=== PATIENT | male | born 1965 | race Caucasian/White ===

== ENCOUNTER → 2016-11-27 | Outpatient (CLI) | payer OTHER | LOC: M PAIN 10:40 | PROVIDERS: ATTEND Anesthesiology | DX: Z09 Encounter for follow-up examination after completed treatment for conditions other than malignant neoplasm (principal); G89.29 Other chronic pain; M51.16 Intervertebral disc disorders with radiculopathy, lumbar region; E11.9 Type 2 diabetes mellitus without complications; I25.2 Old myocardial infarction; E03.9 Hypothyroidism, unspecified; I25.10 Atherosclerotic heart disease of native coronary artery without angina pectoris; I10 Essential (primary) hypertension; M11.20 Other chondrocalcinosis, unspecified site; K21.9 Gastro-esophageal reflux disease without esophagitis; Z88.5 Allergy status to narcotic agent; Z88.8 Allergy status to other drugs, medicaments and biological substances; Z88.6 Allergy status to analgesic agent; Z79.01 Long term (current) use of anticoagulants; Z79.82 Long term (current) use of aspirin; Z79.891 Long term (current) use of opiate analgesic ==

== ENCOUNTER → 2017-01-15 | Outpatient (CLI) | payer OTHER ==
--- NOTE | 2017-01-24 00:35 | ECWPNPC ---
PATIENT NAME: PEMA KING : 1965 GENDER: MALE VISIT DATE: 01/15/2017 DISCHARGE DATE: 01/15/17 1535 VISIT LOCKED DATE TIME: PHYSICIAN: YOU BOYLE RESOURCE: YOU BOYLE REASON FOR APPOINTMENT 1. W/C LOW BACK HISTORY OF PRESENT ILLNESS HISTORY OF PRESENT ILLNESS: PAIN THE PATIENT DESCRIBES THE PAIN... 51 YEAR OLD MALE WITH HISTORY OF CHRONIC BACK PAIN. PATIENT DESCRIBES THE PAIN ACHING, BURNING, IT COMES AND GOES, SHARP, STABBING, TENDER, THROBBING, SORE, SHOOTING, IT COMES AND GOES, AND HAVING IT ALL THE TIME WITH A PAIN SCORE OF 9/10. PATIENT WAS INJURED IN A WORK RELATED INJURY ON 01/26/1996 WORKING FOR [employer], PATIENT WAS LIFTING A PROPANE TANK WHEN HE INJURED HIS BACK. MR. KING REPORTS THAT HE DOES SOME PHYSICAL THERAPY EXERCISES AT HOME THAT DOES AID IN PAIN RELIEF. PATIENT REPORTS THAT GABAPENTIN TAKES THE EDGE OFF THE PAIN, BUT THE PAIN IS STILL THERE. MR. KING STATES THAT ANY TYPE OF ACTIVITY INCLUDING STANDING, SITTING, AND WALKING INCREASES THE PAIN IN THE LOWER BACK AND AT THIS TIME THE ONLY THING THAT AIDS WITH RELIEF IS STRETCHING, MEDICATIONS AND REST. PATIENT DENIES UNEXPLAINABLE WEIGHT LOSS, FEVER, CHILLS, NEW CHANGES ON HIS URINARY OR BOWEL CONTROL. FALL RISK SCREENING: SCREENING :NO FALLS IN THE PAST YEAR CURRENT MEDICATIONS TAKING GABAPENTIN 600 MG TABLET 1 TABLET ORALLY THREE TIMES A DAY TAKING ALLOPURINOL 100 MG TABLETS ONE TAB ORALLY 200MG DAILY TAKING CLOPIDOGREL BISULFATE 75 MG TABLET 1 TABLET ORALLY ONCE A DAY TAKING RAMIPRIL 10 MG CAPSULE 1 CAPSULE ORALLY ONCE A DAY TAKING LEVOTHYROXINE SODIUM 125 MCG TABLET 1 TABLET ON AN EMPTY STOMACH IN THE MORNING ORALLY ONCE A DAY TAKING ASPIRIN 325 MG TABLET 1 TABLET ORALLY ONCE A DAY TAKING VENLAFAXINE HCL ER 225 MG TABLET EXTENDED RELEASE 24 HOUR 1 TABLET WITH FOOD ORALLY ONCE A DAY TAKING FENOFIBRATE 145 MG TABLET 1 TABLET ORALLY ONCE A DAY TAKING TORSEMIDE 10 MG TABLET 1 TABLET ORALLY ONCE A DAY TAKING VITAMIN D 400 UNIT CAPSULE 1 TABLET ORALLY TWICE DAILY TAKING MULTI FOR HIM 50+ - TABLET ORALLY TAKING METOPROLOL TARTRATE 50 MG TABLET 1 TABLET WITH FOOD ORALLY TWICE A DAY TAKING NITROGLYCERIN 0.4 MG TABLET SUBLINGUAL SUBLINGUAL TAKING HYDROCODONE-ACETAMINOPHEN 10-325 MG TABLET 1 TABLET NEEDED ORALLY EVERY 6 HRS TAKING FLEXERIL 1 TAB ORAL 1-2 TABS NEEDED TAKING AMMONIUM LACTATE 12 % LOTION 1 APPLICATION TO AFFECTED AREA EXTERNALLY TWICE A DAY MEDICATION LIST REVIEWED AND RECONCILED WITH THE PATIENT PAST MEDICAL HISTORY DIABETES [place] X4 HYPOTHYROIDISM CAD HTN CHONDROCALCINOSIS CHRONIC BACK PAIN DIVERTICULITIS GERD ALLERGIES MOTRIN: ANAPHYLAXIS: ALLERGY PENICILLIN (FOR ALLERGIES USE ONLY): ANAPHYLAXIS: ALLERGY COLCHICINE: RENAL FAILURE: ALLERGY SURGICAL HISTORY BOWEL RESECTION 2012 CARDIAC CATHX X5/ STENTS X 3 INGUINAL HERNIA REPAIR 1987 T&A 1968 FAMILY HISTORY NO FAMILY HISTORY DOCUMENTED. SOCIAL HISTORY GENERAL: TOBACCO USE ARE YOU A:NONSMOKER LEARNING BARRIERS / SPECIAL NEEDS ORIENTED TO PLAN OF CARE: PATIENT, PAIN MANAGEMENT PATIENT, ORIENTED TO PLAN OF CARE: PATIENT, PAIN MANAGEMENT PATIENT. NEW PATIENT PAIN DIARY TODAY'S VISITNOTES FROM 0-10, WHAT LEVEL IS YOUR PAIN TODAY?0 PAIN CLINIC PFS, CLERGY, PUBLIC HEALTH REFERRALS PFS REFERRAL NEEDED?NO CLERGY REFERRAL NEEDED?NO PUBLIC HEALTH REFERRAL NEEDED?NO WAS THE PROVIDER NOTIFIED OF ANY PERTINENT INFO?NO PFS REFERRAL NEEDED?NO CLERGY REFERRAL NEEDED?NO PUBLIC HEALTH REFERRAL NEEDED?NO WAS THE PROVIDER NOTIFIED OF ANY PERTINENT INFO?NO HOSPITALIZATION/MAJOR DIAGNOSTIC PROCEDURE SEE ABOVE REVIEW OF SYSTEMS CONSTITUTIONAL: ANY CHANGE IN YOUR MEDICAL CONDITION? NO . CHILLS NO . FEVER NO . INFECTION: DO YOU HAVE NEW INFECTIONS? NO . DO YOU HAVE HISTORY OF MRSA? NO . MUSCULOSKELETAL: ANY NEW PATTERNS OF PAIN OR NUMBNESS? YES PT REPORTS INCREASED NUMBNESS/WEAKNESS OF LEFT LEG OVER PAST SEVERAL WEEKS . GASTROENTEROLOGY: ANY NEW CHANGE IN BOWEL CONTROL? NO . GENITOURINARY: ANY NEW CHANGE IN BLADDER CONTROL? NO . IS THERE A CHANCE YOU COULD BE ? NO . HEMATOLOGY/LYMPH: DO YOU TAKE ANY BLOOD THINNERS? (FOR EXAMPLE- COUMADIN, PLAVIX, AGGRENOX, PLATEL, PRADAXA, OR XARELTO) YES PLAVIX . WHEN WAS YOUR LAST DOSE? DATE: TIME: . NEUROLOGY: HAVE YOU FALLEN IN THE PAST 6 MONTHS? NO . ANY NEW EXTREMITY NUMBNESS OR WEAKNESS? NO . CARDIOLOGY: DO YOU HAVE A PACEMAKER OR DEFIBRILLATOR? NO . RESPIRATORY: HAVE YOU BEEN SICK IN THE PAST WEEK? NO . FEVER NO . FLU LIKE SYMPTOMS? NO . COUGH NO . INTEGUMENTARY: DO YOU HAVE ANY RASHES OR OPEN SORES? NO . ALLERGIC/IMMUNO: ARE YOU ALLERGIC TO SHELLFISH OR IV DYE? NO . ANY NEW ALLERGIES? NO . PSYCHIATRIC: DO YOU HAVE THOUGHTS OF HURTING YOURSELF OR SOMEONE ELSE? NO . ARE YOU ABUSED, NEGLECTED, OR IN AN UNSAFE ENVIRONMENT? NO . ENDOCRINOLOGY: ARE YOU DIABETIC? NO . OTHER: DO YOU NEED ANY PRESCRIPTIONS? YES . IF YES, PLEASE LIST: ____HYDROCODONE . ANY NEW PROBLEMS WITH YOUR MEDICATIONS? NO . WHEN DID YOU LAST EAT? ____ . WHEN DID YOU LAST DRINK? ____ . WHAT DID YOU LAST DRINK? ____ . NAME OF PERSON DRIVING YOU HOME? ____ . DO YOU HAVE ANY OTHER QUESTIONS OR CONCERNS NO . REVIEWED BY: PROVIDER: YOU BOYLE MD . VITAL SIGNS WT 249.4 LBS, HT 68 IN, BMI 37.92 INDEX, BP 138/88 MM HG, HR 67 /MIN, RR 18 /MIN, TEMP 97.8 F, OXYGEN SAT % 96, NA INITIALS HS. EXAMINATION : PATIENT IS ALERT O X 3 AND COOPERATIVE. ANTALGIC GAIT. PATIENT HAS LIMITATIONS IN FLEXING HIS BACK AT 25 DEGREES AND EXTENDING HIS BACK AT 5 DEGREES. PATIENT'S LEFT LEG IS WEAKER THAN THE RIGHT LEG AT EXTENSION AND FLEXION. THERE IS TENDERNESS IN THE LUMBAR AREA AND PARASPINAL MUSCLE GROUP. ASSESSMENTS INTERVERTEBRAL DISC DISORDERS WITH RADICULOPATHY, LUMBAR REGION - M51.16 (PRIMARY) TREATMENT INTERVERTEBRAL DISC DISORDERS WITH RADICULOPATHY, LUMBAR REGION REFILL GABAPENTIN TABLET, 600 MG, 1 TABLET, ORALLY, THREE TIMES A DAY, 30 DAY(S), 90 TABLET, REFILLS 0 NOTES: WE DISCUSSED SEVERAL ISSUES WITH MR. KING'S PAIN MANAGEMENT CASE. AT THIS TIME THE PATIENT WILL CONTINUE TO USE THE GABAPENTIN FOR THE NEUROPATHIC PAIN. I SPOKE WITH DR. KIRK ABOUT PRESCRIBING THE PATIENT NALTREXONE, WHICH WITH A LOW DOSE CAN HAVE ANALGESIC PROPERTIES. PATIENT EXPRESSED THE INJECTIONS DO NOT AID IN PAIN RELIEF AND WOULD NOT LIKE TO MOVE FORWARD WITH INTERVENTIONS AT THIS TIME. WE DISCUSSED DOING AN MRI HOWEVER, IF THE PATIENT DOES NOT WANT TO DO INTERVENTIONS AT THIS TIME THERE IS LITTLE PURPOSE FOR ONE. PATIENT WILL RETURN TO THE CLINIC IN 4 WEEKS TO DISCUSS HOW THE MEDICATION AIDED IN PAIN RELIEF. INSTRUCTIONS WERE GIVEN, QUESTIONS WERE ANSWERED, PATIENT REPORTS UNDERSTANDING AND AGREES WITH THE PLAN. I, BENY WHITMORE, DOCUMENTED THE ABOVE INFORMATION ACTING A SCRIBE FOR DR. BOYLE. I HAVE REVIEWED THE ABOVE DOCUMENT, WRITTEN BY BENY BALBUENA AND I VERIFY THAT IT IS ACCURATE. PROCEDURES PN WORKMANS' COMP OPINION IN YOUR OPINION, WAS THE INCIDENT THAT THE PATIENT DESCRIBED THE COMPETENT MEDICAL CAUSE OF THIS INJURY/ILLNESS? YES ARE THE PATIENT'S COMPLAINTS CONSISTENT WITH HIS/HER HISTORY OF THE INJURY/ILLNESS? YES IS THE PATIENT'S HISTORY OF THE INJURY/ILLNESS CONSISTENT WITH YOUR OBJECTIVE FINDING? YES WHAT IS THE PERCENTAGE OF TEMPORARY IMPAIRMENT? MODERATE TO MARKED = 66.7% IS THE PATIENT WORKING? NO DOCTOR ON SITE: YOU MENON MD PROCEDURE CODES FA211 ESTABILISHED PATIENT [facility] FACILITY CHARGE G8427 DOC MEDS VERIFIED W/PT OR RE G8730 PAIN ASSESS POS TOOL F/U PLAN DOC DISPOSITION & COMMUNICATION FOLLOW UP 4 WEEKS ELECTRONICALLY SIGNED BY YOU BOYLE MD ON 01/21/2017 AT 06:22 PM EDT DISCLAIMER : THIS IS A VISIT SUMMARY EXTRACTED FROM THE [employer] CHART. IT IS NOT A COPY OF THE [employer] PROGRESS NOTE. ASHLEY
== END | disposition home or self-care (01) ==
LOC: M PAIN 13:00
PROVIDERS: ATTEND Anesthesiology
DX: Z09 Encounter for follow-up examination after completed treatment for conditions other than malignant neoplasm (principal); G89.29 Other chronic pain; M51.16 Intervertebral disc disorders with radiculopathy, lumbar region; I10 Essential (primary) hypertension; E11.9 Type 2 diabetes mellitus without complications; E03.9 Hypothyroidism, unspecified; K21.9 Gastro-esophageal reflux disease without esophagitis; I25.2 Old myocardial infarction; I25.10 Atherosclerotic heart disease of native coronary artery without angina pectoris; M11.20 Other chondrocalcinosis, unspecified site; Z87.19 Personal history of other diseases of the digestive system; Z95.5 Presence of coronary angioplasty implant and graft; Z79.899 Other long term (current) drug therapy; Z79.82 Long term (current) use of aspirin; Z79.02 Long term (current) use of antithrombotics/antiplatelets; Z88.0 Allergy status to penicillin; Z88.8 Allergy status to other drugs, medicaments and biological substances

== ENCOUNTER → 2017-03-12 | Outpatient (CLI) | payer OTHER ==
--- NOTE | 2017-03-23 00:16 | ECWPNPC ---
PATIENT NAME: PEMA KING : 1965 GENDER: MALE VISIT DATE: 03/12/2017 DISCHARGE DATE: 03/12/17 0939 VISIT LOCKED DATE TIME: PHYSICIAN: YOU BOYLE RESOURCE: YOU BOYLE REASON FOR APPOINTMENT 1. MEDS HISTORY OF PRESENT ILLNESS HISTORY OF PRESENT ILLNESS: PAIN THE PATIENT DESCRIBES THE PAIN... 51 YEAR OLD MALE PATIENT WITH HISTORY OF CHRONIC BACK PAIN. PATIENT DESCRIBES THE PAIN ACHING, BURNING, SHARP, STABBING, TENDER, THROBBING, SORE, SHOOTING, AND IT COMES AND GOES WITH A PAIN SCORE OF 4/10 ON TODAY'S VISIT. PATIENT WAS INJURED IN A WORK RELATED INJURY ON 01/26/1996 WORKING FOR [employer], PATIENT WAS LIFTING A PROPANE TANK WHEN HE INJURED HIS BACK. MR. KING REPORTS THAT HE DOES SOME PHYSICAL THERAPY EXERCISES AT HOME THAT DOES AID IN PAIN RELIEF. PATIENT DENIES HAVING ANY SURGERY ON HIS BACK. PATIENT STATES THAT SINCE TAKING NALTREXONE HE IS SLEEPING BETTER, HE IS MORE MOBILE AND FUNCTIONAL, BUT THE PAIN IS STILL THERE IT HELPS WITH THE BREAK THROUGH PAIN. PATIENT DENIES UNEXPLAINABLE WEIGHT LOSS, FEVER, CHILLS, NEW CHANGES ON HIS URINARY OR BOWEL CONTROL. FALL RISK SCREENING: SCREENING :NO FALLS IN THE PAST YEAR CURRENT MEDICATIONS TAKING ALLOPURINOL 100 MG TABLETS ONE TAB ORALLY 200MG DAILY TAKING CLOPIDOGREL BISULFATE 75 MG TABLET 1 TABLET ORALLY ONCE A DAY TAKING RAMIPRIL 10 MG CAPSULE 1 CAPSULE ORALLY ONCE A DAY TAKING LEVOTHYROXINE SODIUM 125 MCG TABLET 1 TABLET ON AN EMPTY STOMACH IN THE MORNING ORALLY ONCE A DAY TAKING ASPIRIN 325 MG TABLET 1 TABLET ORALLY ONCE A DAY TAKING FENOFIBRATE 145 MG TABLET 1 TABLET ORALLY ONCE A DAY TAKING TORSEMIDE 10 MG TABLET 1 TABLET ORALLY ONCE A DAY TAKING VITAMIN D 400 UNIT CAPSULE 1 TABLET ORALLY TWICE DAILY TAKING MULTI FOR HIM 50+ - TABLET ORALLY TAKING METOPROLOL TARTRATE 50 MG TABLET 1 TABLET WITH FOOD ORALLY TWICE A DAY TAKING NITROGLYCERIN 0.4 MG TABLET SUBLINGUAL SUBLINGUAL TAKING FLEXERIL 1 TAB ORAL 1-2 TABS @ HS NEEDED TAKING AMMONIUM LACTATE 12 % LOTION 1 APPLICATION TO AFFECTED AREA EXTERNALLY TWICE A DAY TAKING NALTREXONE HCL 50 MG TABLET PREPARE 2 MG TAB ORALLY FOR PAIN TWICE DAILY TAKING GABAPENTIN 600 MG TABLET 1 TABLET ORALLY THREE TIMES A DAY DISCONTINUED VENLAFAXINE HCL ER 225 MG TABLET EXTENDED RELEASE 24 HOUR 1 TABLET WITH FOOD ORALLY ONCE A DAY DISCONTINUED HYDROCODONE-ACETAMINOPHEN 10-325 MG TABLET 1 TABLET NEEDED ORALLY EVERY 6 HRS MEDICATION LIST REVIEWED AND RECONCILED WITH THE PATIENT PAST MEDICAL HISTORY DIABETES [place] X4 HYPOTHYROIDISM CAD HTN CHONDROCALCINOSIS CHRONIC BACK PAIN DIVERTICULITIS GERD START OF FROZEN LEFT SHOULDER ALLERGIES MOTRIN: ANAPHYLAXIS: ALLERGY PENICILLIN (FOR ALLERGIES USE ONLY): ANAPHYLAXIS: ALLERGY COLCHICINE: RENAL FAILURE: ALLERGY SURGICAL HISTORY BOWEL RESECTION 2012 CARDIAC CATHX X5/ STENTS X 3 INGUINAL HERNIA REPAIR 1987 T&A 1968 FAMILY HISTORY NO FAMILY HISTORY DOCUMENTED. SOCIAL HISTORY GENERAL: TOBACCO USE ARE YOU A:NONSMOKER LEARNING BARRIERS / SPECIAL NEEDS ORIENTED TO PLAN OF CARE: PATIENT, PAIN MANAGEMENT PATIENT, ORIENTED TO PLAN OF CARE: PATIENT, PAIN MANAGEMENT PATIENT. NEW PATIENT PAIN DIARY TODAY'S VISITNOTES FROM 0-10, WHAT LEVEL IS YOUR PAIN TODAY?0 PAIN CLINIC PFS, CLERGY, PUBLIC HEALTH REFERRALS PFS REFERRAL NEEDED?NO CLERGY REFERRAL NEEDED?NO PUBLIC HEALTH REFERRAL NEEDED?NO WAS THE PROVIDER NOTIFIED OF ANY PERTINENT INFO?NO PFS REFERRAL NEEDED?NO CLERGY REFERRAL NEEDED?NO PUBLIC HEALTH REFERRAL NEEDED?NO WAS THE PROVIDER NOTIFIED OF ANY PERTINENT INFO?NO HOSPITALIZATION/MAJOR DIAGNOSTIC PROCEDURE SEE ABOVE REVIEW OF SYSTEMS CONSTITUTIONAL: ANY CHANGE IN YOUR MEDICAL CONDITION? YES, LEFT SHOULDER PAIN. PT STATED PCP SAID IT WAS THE START OF A FROZEN SHOULDER. . CHILLS NO . FEVER NO . INFECTION: DO YOU HAVE NEW INFECTIONS? NO . DO YOU HAVE HISTORY OF MRSA? NO . MUSCULOSKELETAL: ANY NEW PATTERNS OF PAIN OR NUMBNESS? NO . GASTROENTEROLOGY: ANY NEW CHANGE IN BOWEL CONTROL? NO . GENITOURINARY: ANY NEW CHANGE IN BLADDER CONTROL? NO . IS THERE A CHANCE YOU COULD BE ? NO . HEMATOLOGY/LYMPH: DO YOU TAKE ANY BLOOD THINNERS? (FOR EXAMPLE- COUMADIN, PLAVIX, AGGRENOX, PLATEL, PRADAXA, OR XARELTO) YES, PLAVIX . WHEN WAS YOUR LAST DOSE? DATE: TIME: 03/12/17 0810 . NEUROLOGY: HAVE YOU FALLEN IN THE PAST 6 MONTHS? NO . ANY NEW EXTREMITY NUMBNESS OR WEAKNESS? NO . CARDIOLOGY: DO YOU HAVE A PACEMAKER OR DEFIBRILLATOR? NO . RESPIRATORY: HAVE YOU BEEN SICK IN THE PAST WEEK? NO . FEVER NO . FLU LIKE SYMPTOMS? NO . COUGH NO . INTEGUMENTARY: DO YOU HAVE ANY RASHES OR OPEN SORES? NO . ALLERGIC/IMMUNO: ARE YOU ALLERGIC TO SHELLFISH OR IV DYE? NO . ANY NEW ALLERGIES? NO . PSYCHIATRIC: DO YOU HAVE THOUGHTS OF HURTING YOURSELF OR SOMEONE ELSE? NO . ARE YOU ABUSED, NEGLECTED, OR IN AN UNSAFE ENVIRONMENT? NO . ENDOCRINOLOGY: ARE YOU DIABETIC? NO . OTHER: DO YOU NEED ANY PRESCRIPTIONS? NO . IF YES, PLEASE LIST: ____ . ANY NEW PROBLEMS WITH YOUR MEDICATIONS? NO . WHEN DID YOU LAST EAT? ____ . WHEN DID YOU LAST DRINK? ____ . WHAT DID YOU LAST DRINK? ____ . NAME OF PERSON DRIVING YOU HOME? ____ . DO YOU HAVE ANY OTHER QUESTIONS OR CONCERNS NO . REVIEWED BY: PROVIDER: YOU BOYLE MD . VITAL SIGNS WT 249.4 LBS, HT 68 IN, BMI 37.92 INDEX, BP 150/103 MM HG, REPEAT BP 140/98 MANUAL, HR 73 /MIN, RR 16 /MIN, TEMP 97.5 F, OXYGEN SAT % 98%, NA INITIALS TL 0855, REVIEWED BY: AD. EXAMINATION : PATIENT IS ALERT O X 3 AND COOPERATIVE. ANTALGIC GAIT. PATIENT HAS LIMITATIONS IN FLEXING AND EXTENDING HIS BACK. PATIENT'S LEFT LEG IS WEAKER THAN THE RIGHT LEG AT EXTENSION AND FLEXION. THERE IS TENDERNESS IN THE LUMBAR AREA AND PARASPINAL MUSCLE GROUP. ASSESSMENTS INTERVERTEBRAL DISC DISORDERS WITH RADICULOPATHY, LUMBAR REGION - M51.16 (PRIMARY) TREATMENT INTERVERTEBRAL DISC DISORDERS WITH RADICULOPATHY, LUMBAR REGION NOTES: WE DISCUSSED SEVERAL ISSUES WITH MR. KING'S PAIN MANAGEMENT CASE. AT THIS TIME I WILL INCREASE THE NALTREXONE TO 3 TIMES A DAY. I WILL HAVE THE PATIENT FOLLOW UP WITH ME IN 3 WEEKS TO SEE HOW THE MEDICATION IS HELPING HIM. INSTRUCTIONS WERE GIVEN, QUESTIONS WERE ANSWERED, PATIENT REPORTS UNDERSTANDING AND AGREES WITH THE PLAN. I, JEANIE WEST, DOCUMENTED THE ABOVE INFORMATION ACTING A SCRIBE FOR DR. BOYLE. I HAVE REVIEWED THE ABOVE DOCUMENT, WRITTEN BY JEANIE BALBUENA AND I VERIFY THAT IT IS ACCURATE. OTHERS REFILL NALTREXONE HCL TABLET, 50 MG, PREPARE 2 MG TAB (COMPOUND PRODUCT), ORALLY FOR PAIN, THREE TIMES DAILY, 30 DAY(S), 90, REFILLS 0 PROCEDURES PN WORKMANS' COMP OPINION IN YOUR OPINION, WAS THE INCIDENT THAT THE PATIENT DESCRIBED THE COMPETENT MEDICAL CAUSE OF THIS INJURY/ILLNESS? YES ARE THE PATIENT'S COMPLAINTS CONSISTENT WITH HIS/HER HISTORY OF THE INJURY/ILLNESS? YES IS THE PATIENT'S HISTORY OF THE INJURY/ILLNESS CONSISTENT WITH YOUR OBJECTIVE FINDING? YES WHAT IS THE PERCENTAGE OF TEMPORARY IMPAIRMENT? MODERATE TO MARKED = 66.7% IS THE PATIENT WORKING? NO DOCTOR ON SITE: YOU MENON MD PROCEDURE CODES FA211 ESTABILISHED PATIENT [facility] CHARGE G8730 PAIN ASSESS POS TOOL F/U PLAN DOC G8427 DOC MEDS VERIFIED W/PT OR RE DISPOSITION & COMMUNICATION FOLLOW UP 3 WEEKS ELECTRONICALLY SIGNED BY YOU BOYLE MD ON 03/22/2017 AT 04:05 PM EDT DISCLAIMER : THIS IS A VISIT SUMMARY EXTRACTED FROM THE [employer] CHART. IT IS NOT A COPY OF THE [employer] PROGRESS NOTE. ASHLEY
== END ==
LOC: M PAIN 08:40
PROVIDERS: ATTEND Anesthesiology
DX: G89.29 Other chronic pain (principal); M51.16 Intervertebral disc disorders with radiculopathy, lumbar region; E11.9 Type 2 diabetes mellitus without complications; I25.2 Old myocardial infarction; E03.9 Hypothyroidism, unspecified; I25.10 Atherosclerotic heart disease of native coronary artery without angina pectoris; I10 Essential (primary) hypertension; K21.9 Gastro-esophageal reflux disease without esophagitis; M75.02 Adhesive capsulitis of left shoulder; Z79.82 Long term (current) use of aspirin; Z79.899 Other long term (current) drug therapy; Z88.0 Allergy status to penicillin; Z88.6 Allergy status to analgesic agent; Z88.8 Allergy status to other drugs, medicaments and biological substances; Z79.02 Long term (current) use of antithrombotics/antiplatelets

== ENCOUNTER → 2017-04-04 | Outpatient (CLI) | payer OTHER ==
--- NOTE | 2017-04-07 23:58 | ECWPNPC ---
PATIENT NAME: PEMA KING : 1965 GENDER: MALE VISIT DATE: 04/04/2017 DISCHARGE DATE: 04/04/17 0933 VISIT LOCKED DATE TIME: PHYSICIAN: YOU BOYLE RESOURCE: YOU BOYLE REASON FOR APPOINTMENT 1. W/C LUMBAR HISTORY OF PRESENT ILLNESS HISTORY OF PRESENT ILLNESS: PAIN THE PATIENT DESCRIBES THE PAIN... 51 YEAR OLD MALE PATIENT WITH HISTORY OF CHRONIC BACK PAIN. PATIENT DESCRIBES THE PAIN ACHING, BURNING, SHARP, STABBING, TENDER, THROBBING, SORE, SHOOTING, IT COMES AND GOES, AND HAVING IT ALL THE TIME WITH A PAIN SCORE OF 4/10 ON TODAY'S VISIT. PATIENT WAS INJURED IN A WORK RELATED INJURY ON 01/26/1996 WORKING FOR [employer], PATIENT WAS LIFTING A PROPANE TANK WHEN HE INJURED HIS BACK. MR. KING REPORTS THAT HE WAS TAUGHT WAS PHYSICAL THERAPY EXERCISES AT HOME WHICH AID IN PAIN RELIEF AND AT THIS TIME DOES NOT NEED FORMAL PHYSICAL THERAPY SESSIONS. PATIENT DENIES HAVING ANY SURGERY ON HIS BACK. PATIENT IS TAKING NALTREXONE FOR THE PAIN, AND STATES THAT HE IS SLEEPING BETTER, MOVING BETTER, HAVING MORE ENERGY, AND NOW HE IS NOT SMOKING MUCH. , PATIENT DENIES UNEXPLAINABLE WEIGHT LOSS, FEVER, CHILLS, NEW CHANGES ON HIS URINARY OR BOWEL CONTROL. FALL RISK SCREENING: SCREENING :NO FALLS IN THE PAST YEAR CURRENT MEDICATIONS TAKING NALTREXONE HCL 50 MG TABLET PREPARE 2 MG TAB (COMPOUND PRODUCT) ORALLY FOR PAIN THREE TIMES DAILY TAKING ALLOPURINOL 100 MG TABLETS ONE TAB ORALLY 200MG DAILY TAKING CLOPIDOGREL BISULFATE 75 MG TABLET 1 TABLET ORALLY ONCE A DAY TAKING RAMIPRIL 10 MG CAPSULE 1 CAPSULE ORALLY ONCE A DAY TAKING LEVOTHYROXINE SODIUM 137 MCG TABLET 1 TABLET ON AN EMPTY STOMACH IN THE MORNING ORALLY ONCE A DAY TAKING ASPIRIN 325 MG TABLET 1 TABLET ORALLY ONCE A DAY TAKING FENOFIBRATE 145 MG TABLET 1 TABLET ORALLY ONCE A DAY TAKING TORSEMIDE 10 MG TABLET 1 TABLET ORALLY ONCE A DAY TAKING VITAMIN D 2000 UNIT CAPSULE 1 TABLET ORALLY TWICE DAILY TAKING MULTI FOR HIM 50+ - TABLET ORALLY TAKING METOPROLOL TARTRATE 50 MG TABLET 1 TABLET WITH FOOD ORALLY TWICE A DAY TAKING NITROGLYCERIN 0.4 MG TABLET SUBLINGUAL SUBLINGUAL TAKING FLEXERIL 1 TAB ORAL 1-2 TABS @ HS NEEDED TAKING AMMONIUM LACTATE 12 % LOTION 1 APPLICATION TO AFFECTED AREA EXTERNALLY TWICE A DAY TAKING GABAPENTIN 600 MG TABLET 1 TABLET ORALLY THREE TIMES A DAY MEDICATION LIST REVIEWED AND RECONCILED WITH THE PATIENT PAST MEDICAL HISTORY DIABETES [place] X4 HYPOTHYROIDISM CAD HTN CHONDROCALCINOSIS CHRONIC BACK PAIN DIVERTICULITIS GERD START OF FROZEN LEFT SHOULDER ALLERGIES MOTRIN: ANAPHYLAXIS: ALLERGY PENICILLIN (FOR ALLERGIES USE ONLY): ANAPHYLAXIS: ALLERGY COLCHICINE: RENAL FAILURE: ALLERGY SURGICAL HISTORY BOWEL RESECTION 2012 CARDIAC CATHX X5/ STENTS X 3 INGUINAL HERNIA REPAIR 1987 T&A 1968 FAMILY HISTORY NO FAMILY HISTORY DOCUMENTED. SOCIAL HISTORY GENERAL: TOBACCO USE ARE YOU A:NONSMOKER LEARNING BARRIERS / SPECIAL NEEDS ORIENTED TO PLAN OF CARE: PATIENT, PAIN MANAGEMENT PATIENT, ORIENTED TO PLAN OF CARE: PATIENT, PAIN MANAGEMENT PATIENT. NEW PATIENT PAIN DIARY TODAY'S VISITNOTES FROM 0-10, WHAT LEVEL IS YOUR PAIN TODAY?0 PAIN CLINIC PFS, CLERGY, PUBLIC HEALTH REFERRALS PFS REFERRAL NEEDED?NO CLERGY REFERRAL NEEDED?NO PUBLIC HEALTH REFERRAL NEEDED?NO WAS THE PROVIDER NOTIFIED OF ANY PERTINENT INFO?NO PFS REFERRAL NEEDED?NO CLERGY REFERRAL NEEDED?NO PUBLIC HEALTH REFERRAL NEEDED?NO WAS THE PROVIDER NOTIFIED OF ANY PERTINENT INFO?NO HOSPITALIZATION/MAJOR DIAGNOSTIC PROCEDURE SEE ABOVE REVIEW OF SYSTEMS CONSTITUTIONAL: ANY CHANGE IN YOUR MEDICAL CONDITION? NO . CHILLS NO . FEVER NO . INFECTION: DO YOU HAVE NEW INFECTIONS? NO . DO YOU HAVE HISTORY OF MRSA? NO . MUSCULOSKELETAL: ANY NEW PATTERNS OF PAIN OR NUMBNESS? NO . GASTROENTEROLOGY: ANY NEW CHANGE IN BOWEL CONTROL? NO . GENITOURINARY: ANY NEW CHANGE IN BLADDER CONTROL? NO . IS THERE A CHANCE YOU COULD BE ? NO . HEMATOLOGY/LYMPH: DO YOU TAKE ANY BLOOD THINNERS? (FOR EXAMPLE- COUMADIN, PLAVIX, AGGRENOX, PLATEL, PRADAXA, OR XARELTO) NO . WHEN WAS YOUR LAST DOSE? DATE: TIME: 04/04/17@0730 . NEUROLOGY: HAVE YOU FALLEN IN THE PAST 6 MONTHS? NO . ANY NEW EXTREMITY NUMBNESS OR WEAKNESS? NO . CARDIOLOGY: DO YOU HAVE A PACEMAKER OR DEFIBRILLATOR? NO . RESPIRATORY: HAVE YOU BEEN SICK IN THE PAST WEEK? NO . FEVER NO . FLU LIKE SYMPTOMS? NO . COUGH NO . INTEGUMENTARY: DO YOU HAVE ANY RASHES OR OPEN SORES? NO . ALLERGIC/IMMUNO: ARE YOU ALLERGIC TO SHELLFISH OR IV DYE? NO . ANY NEW ALLERGIES? NO . PSYCHIATRIC: DO YOU HAVE THOUGHTS OF HURTING YOURSELF OR SOMEONE ELSE? NO . ARE YOU ABUSED, NEGLECTED, OR IN AN UNSAFE ENVIRONMENT? NO . ENDOCRINOLOGY: ARE YOU DIABETIC? NO . OTHER: DO YOU NEED ANY PRESCRIPTIONS? NO . IF YES, PLEASE LIST: ____ . ANY NEW PROBLEMS WITH YOUR MEDICATIONS? NO . WHEN DID YOU LAST EAT? ____ . WHEN DID YOU LAST DRINK? ____ . WHAT DID YOU LAST DRINK? ____ . NAME OF PERSON DRIVING YOU HOME? ____ . DO YOU HAVE ANY OTHER QUESTIONS OR CONCERNS NO . REVIEWED BY: PROVIDER: YOU BOYLE MD . VITAL SIGNS WT 245 LBS, HT 68 IN, BMI 37.25 INDEX, BP 147/89 MM HG, HR 67 /MIN, RR 18 /MIN, TEMP 97.8 F, OXYGEN SAT % 98, REVIEWED BY: VD. EXAMINATION : PATIENT IS ALERT O X 3 AND COOPERATIVE. ANTALGIC GAIT. PATIENT HAS LIMITATIONS IN FLEXING AND EXTENDING HIS BACK. PATIENT'S LEFT LEG IS WEAKER THAN THE RIGHT LEG AT EXTENSION AND FLEXION. THERE IS TENDERNESS IN THE LUMBAR AREA AND PARASPINAL MUSCLE GROUP. ASSESSMENTS LOW BACK PAIN - M54.5 (PRIMARY) INTERVERTEBRAL DISC DISORDERS WITH RADICULOPATHY, LUMBAR REGION - M51.16 TREATMENT LOW BACK PAIN NOTES: WE DISCUSSED SEVERAL ISSUES WITH MR. KING'S PAIN MANAGEMENT CASE. AT THIS TIME I WILL REFILL NALTREXONE FOR THE PATIENT TODAY. PATIENT IS DOING AT THIS TIME AND MR. KING'S STATES THAT HIS PAIN IS CONTROLLABLE AT THIS TIME. PATIENT WILL FOLLOW UP WITH ME IN 3 MONTHS. I DISCUSSED WITH THE PATIENT THAT HE CAN CALL IN FOR A REFILL OF HIS NALTREXONE OVER THE PHONE. , INSTRUCTIONS WERE GIVEN, QUESTIONS WERE ANSWERED, PATIENT REPORTS UNDERSTANDING AND AGREES WITH THE PLAN. I, JEANIE WEST, DOCUMENTED THE ABOVE INFORMATION ACTING A SCRIBE FOR DR. BOYLE. I HAVE REVIEWED THE ABOVE DOCUMENT, WRITTEN BY JEANIE BALBUENA AND I VERIFY THAT IT IS ACCURATE. OTHERS REFILL NALTREXONE HCL TABLET, 50 MG, PREPARE 2 MG TAB (COMPOUND PRODUCT), ORALLY FOR PAIN, THREE TIMES DAILY, 30 DAY(S), 90, REFILLS 0 PROCEDURES PN WORKMANS' COMP OPINION IN YOUR OPINION, WAS THE INCIDENT THAT THE PATIENT DESCRIBED THE COMPETENT MEDICAL CAUSE OF THIS INJURY/ILLNESS? YES ARE THE PATIENT'S COMPLAINTS CONSISTENT WITH HIS/HER HISTORY OF THE INJURY/ILLNESS? YES IS THE PATIENT'S HISTORY OF THE INJURY/ILLNESS CONSISTENT WITH YOUR OBJECTIVE FINDING? YES WHAT IS THE PERCENTAGE OF TEMPORARY IMPAIRMENT? MODERATE TO MARKED = 66.7% IS THE PATIENT WORKING? NO DOCTOR ON SITE: YOU MENON MD PROCEDURE CODES FA211 ESTABILISHED PATIENT [facility] FACILITY CHARGE G8730 PAIN ASSESS POS TOOL F/U PLAN DOC G8427 DOC MEDS VERIFIED W/PT OR RE DISPOSITION & COMMUNICATION FOLLOW UP 3 MONTHS ELECTRONICALLY SIGNED BY YOU BOYLE MD ON 04/07/2017 AT 08:01 PM EDT DISCLAIMER : THIS IS A VISIT SUMMARY EXTRACTED FROM THE [employer] CHART. IT IS NOT A COPY OF THE [employer] PROGRESS NOTE. ASHLEY
== END ==
LOC: M PAIN 08:30
PROVIDERS: ATTEND Anesthesiology
DX: G89.29 Other chronic pain (principal); M54.5 Low back pain; M51.16 Intervertebral disc disorders with radiculopathy, lumbar region; E11.9 Type 2 diabetes mellitus without complications; I25.2 Old myocardial infarction; E03.9 Hypothyroidism, unspecified; I25.10 Atherosclerotic heart disease of native coronary artery without angina pectoris; I10 Essential (primary) hypertension; K21.9 Gastro-esophageal reflux disease without esophagitis; M11.20 Other chondrocalcinosis, unspecified site; Z90.49 Acquired absence of other specified parts of digestive tract; Z95.5 Presence of coronary angioplasty implant and graft; Z79.82 Long term (current) use of aspirin; Z79.899 Other long term (current) drug therapy; Z88.0 Allergy status to penicillin; Z88.6 Allergy status to analgesic agent; Z88.8 Allergy status to other drugs, medicaments and biological substances; Z79.01 Long term (current) use of anticoagulants; Z79.891 Long term (current) use of opiate analgesic

== ENCOUNTER → 2017-08-02 | Outpatient (CLI) | payer OTHER ==
--- NOTE | 2017-08-10 01:08 | ECWPNPC ---
PATIENT NAME: PEMA KING : 1965 GENDER: MALE VISIT DATE: 08/02/2017 DISCHARGE DATE: 08/02/17 1046 VISIT LOCKED DATE TIME: PHYSICIAN: YOU BOYLE RESOURCE: YOU BOYLE REASON FOR APPOINTMENT 1. WC LOW BACK PAIN HISTORY OF PRESENT ILLNESS HISTORY OF PRESENT ILLNESS: PAIN THE PATIENT DESCRIBES THE PAIN... 51 YEAR OLD MALE PATIENT WITH HISTORY OF CHRONIC BACK PAIN. PATIENT DESCRIBES THE PAIN ACHING, BURNING, SHARP, STABBING, TENDER, THROBBING, SORE, SHOOTING, IT COMES AND GOES, AND HAVING IT ALL THE TIME WITH A PAIN SCORE OF 4/10 ON TODAY'S VISIT. PATIENT WAS INJURED IN A WORK RELATED INJURY ON 01/26/1996 WORKING FOR [employer], PATIENT WAS LIFTING A PROPANE TANK WHEN HE INJURED HIS BACK. MR. KING REPORTS THAT HE WAS TAUGHT WAS PHYSICAL THERAPY EXERCISES AT HOME WHICH AID IN PAIN RELIEF AND AT THIS TIME DOES NOT NEED FORMAL PHYSICAL THERAPY SESSIONS. PATIENT DENIES HAVING ANY SURGERY ON HIS BACK. PATIENT IS TAKING NALTREXONE FOR THE PAIN AND STATES THAT IT DOES NOT AID IN PAIN RELIEF. MR. KING STATES THAT THE GABAPENTIN DOES AID IN RELIEF FROM THE NEUROPATHIC PAIN. PATIENT RECENTLY HAD FALLEN AND WAS TAKEN TO THE ER AND WAS FOUND THAT HE HAD A HEART ATTACK ON 04/11/17. A CARDIAC CATHETER WAS PLACED AND THE PATIENT IS NOW ON PLAVIX. PATIENT DENIES UNEXPLAINABLE WEIGHT LOSS, FEVER, CHILLS, NEW CHANGES ON HIS URINARY OR BOWEL CONTROL. FALL RISK SCREENING: SCREENING :NO FALLS IN THE PAST YEAR CURRENT MEDICATIONS TAKING NALTREXONE HCL 50 MG TABLET PREPARE 2 MG TAB (COMPOUND PRODUCT) ORALLY FOR PAIN THREE TIMES DAILY TAKING ALLOPURINOL 100 MG TABLETS ONE TAB ORALLY 200MG DAILY TAKING CLOPIDOGREL BISULFATE 75 MG TABLET 1 TABLET ORALLY ONCE A DAY TAKING RAMIPRIL 10 MG CAPSULE 1 CAPSULE ORALLY ONCE A DAY TAKING LEVOTHYROXINE SODIUM 137 MCG TABLET 1 TABLET ON AN EMPTY STOMACH IN THE MORNING ORALLY ONCE A DAY TAKING ASPIRIN 325 MG TABLET 1 TABLET ORALLY ONCE A DAY TAKING FENOFIBRATE 145 MG TABLET 1 TABLET ORALLY ONCE A DAY TAKING TORSEMIDE 10 MG TABLET 1 TABLET ORALLY ONCE A DAY TAKING VITAMIN D 2000 UNIT CAPSULE 1 TABLET ORALLY TWICE DAILY TAKING MULTI FOR HIM 50+ - TABLET ORALLY TAKING METOPROLOL TARTRATE 50 MG TABLET 1 TABLET WITH FOOD ORALLY TWICE A DAY TAKING NITROGLYCERIN 0.4 MG TABLET SUBLINGUAL SUBLINGUAL TAKING FLEXERIL 1 TAB ORAL 1-2 TABS @ HS NEEDED TAKING AMMONIUM LACTATE 12 % LOTION 1 APPLICATION TO AFFECTED AREA EXTERNALLY TWICE A DAY TAKING GABAPENTIN 600 MG TABLET 1 TABLET ORALLY THREE TIMES A DAY TAKING PRAVASTATIN SODIUM 40 MG TABLET 1 TABLET ORALLY ONCE A DAY MEDICATION LIST REVIEWED AND RECONCILED WITH THE PATIENT PAST MEDICAL HISTORY DIABETES VT X5 HYPOTHYROIDISM CAD HTN CHONDROCALCINOSIS CHRONIC BACK PAIN DIVERTICULITIS GERD START OF FROZEN LEFT SHOULDER ALLERGIES MOTRIN: ANAPHYLAXIS: ALLERGY PENICILLIN (FOR ALLERGIES USE ONLY): ANAPHYLAXIS: ALLERGY COLCHICINE: RENAL FAILURE: ALLERGY SURGICAL HISTORY BOWEL RESECTION 2012 CARDIAC CATHX X5/ STENTS X 3 INGUINAL HERNIA REPAIR 1987 T&A 1968 SOCIAL HISTORY GENERAL: TOBACCO USE ARE YOU A:NONSMOKER LEARNING BARRIERS / SPECIAL NEEDS ORIENTED TO PLAN OF CARE: PATIENT, PAIN MANAGEMENT PATIENT, ORIENTED TO PLAN OF CARE: PATIENT, PAIN MANAGEMENT PATIENT. NEW PATIENT PAIN DIARY TODAY'S VISITNOTES FROM 0-10, WHAT LEVEL IS YOUR PAIN TODAY?0 PAIN CLINIC PFS, CLERGY, PUBLIC HEALTH REFERRALS PFS REFERRAL NEEDED?NO CLERGY REFERRAL NEEDED?NO PUBLIC HEALTH REFERRAL NEEDED?NO WAS THE PROVIDER NOTIFIED OF ANY PERTINENT INFO?NO HAS THE PATIENT BEEN EDUCATED REGARDING HIS/HER PLAN OF CARE?YES HAS THE PATIENT BEEN EDUCATED REGARDING PAIN, THE RISK FOR PAIN, THE IMPORTANCE OF EFFECTIVE PAIN MANAGEMENT, AND THE PAIN ASSESSMENT PROCESS?YES HOSPITALIZATION/MAJOR DIAGNOSTIC PROCEDURE SEE ABOVE REVIEW OF SYSTEMS REVIEWED BY: PROVIDER: YOU BOYLE MD . CONSTITUTIONAL: ANY CHANGE IN YOUR MEDICAL CONDITION? YES, VT 03/2017 . CHILLS NO . FEVER NO . INFECTION: DO YOU HAVE NEW INFECTIONS? NO . DO YOU HAVE HISTORY OF MRSA? NO . MUSCULOSKELETAL: ANY NEW PATTERNS OF PAIN OR NUMBNESS? NO . GASTROENTEROLOGY: ANY NEW CHANGE IN BOWEL CONTROL? NO . GENITOURINARY: ANY NEW CHANGE IN BLADDER CONTROL? NO . IS THERE A CHANCE YOU COULD BE ? NO . HEMATOLOGY/LYMPH: DO YOU TAKE ANY BLOOD THINNERS? (FOR EXAMPLE- COUMADIN, PLAVIX, AGGRENOX, PLATEL, PRADAXA, OR XARELTO) YES, PLAVIX . WHEN WAS YOUR LAST DOSE? DATE: TIME: . NEUROLOGY: HAVE YOU FALLEN IN THE PAST 6 MONTHS? YES, PT STATES HE FELL DUE TO VT, PT WAS TREATED AT [facility] . ANY NEW EXTREMITY NUMBNESS OR WEAKNESS? NO . CARDIOLOGY: DO YOU HAVE A PACEMAKER OR DEFIBRILLATOR? NO, PT STATES HE HAD VT 04/11/17, PT STATES HE FELL AND SPLIT HIS EYE LID, PT REPORTS HE WAS INCOHERENT AT THE TIME HE WAS AT FRIENDS HOUSE. EMS WAS CALLED AND PT WAS DETERMINED TO HAVE VT, PT WAS BROUGHT TO [facility] WHERE HE HAD HEART CATH, PT DENIES STENTS BEING PLACED. PT REPORTS BLOCKAGES FOUND BUT NOT BAD ENOUGH FOR STENTS TO BE PLACED . RESPIRATORY: HAVE YOU BEEN SICK IN THE PAST WEEK? NO . FEVER NO . FLU LIKE SYMPTOMS? NO . COUGH NO . INTEGUMENTARY: DO YOU HAVE ANY RASHES OR OPEN SORES? NO . ALLERGIC/IMMUNO: ARE YOU ALLERGIC TO SHELLFISH OR IV DYE? NO . ANY NEW ALLERGIES? NO . PSYCHIATRIC: DO YOU HAVE THOUGHTS OF HURTING YOURSELF OR SOMEONE ELSE? NO . ARE YOU ABUSED, NEGLECTED, OR IN AN UNSAFE ENVIRONMENT? NO . ENDOCRINOLOGY: ARE YOU DIABETIC? NO, PT REPORTS HE IS BORDERLINE . OTHER: DO YOU NEED ANY PRESCRIPTIONS? NO . IF YES, PLEASE LIST: ____ . ANY NEW PROBLEMS WITH YOUR MEDICATIONS? NO . WHEN DID YOU LAST EAT? ____ . WHEN DID YOU LAST DRINK? ____ . WHAT DID YOU LAST DRINK? ____ . NAME OF PERSON DRIVING YOU HOME? ____ . DO YOU HAVE ANY OTHER QUESTIONS OR CONCERNS NO . VITAL SIGNS WT 225 LBS, HT 68 IN, BMI 34.21 INDEX, BP 120/74 MM HG, HR 62 /MIN, RR 16 /MIN, TEMP 98.9 F, OXYGEN SAT % 96, REVIEWED BY: EM. EXAMINATION : PATIENT IS ALERT O X 3 AND COOPERATIVE. ANTALGIC GAIT. PATIENT HAS LIMITATIONS IN FLEXING AND EXTENDING HIS BACK. PATIENT'S LEFT LEG IS WEAKER THAN THE RIGHT LEG AT EXTENSION AND FLEXION. PATIENT HAS A LOT OF PAIN IN THE SUPINE POSITION. STRAIGHT LEG RAISES POSITIVE FOR A PAIN AT 15 DEGREES. THERE IS TENDERNESS IN THE LUMBAR AREA AND PARASPINAL MUSCLE GROUP. PENDING LUMBAR MRI. ASSESSMENTS LOW BACK PAIN - M54.5 (PRIMARY) OTHER CHRONIC PAIN - G89.29 INTERVERTEBRAL DISC DISORDER WITH RADICULOPATHY OF LUMBAR REGION - M51.16 TREATMENT LOW BACK PAIN REFILL GABAPENTIN TABLET, 600 MG, 1 TABLET, ORALLY, THREE TIMES A DAY, 30 DAY(S), 90 TABLET, REFILLS 0 START CYMBALTA CAPSULE DELAYED RELEASE PARTICLES, 30 MG, 1 CAPSULE, ORALLY WITH FOOF, TWICE A DAY FOR PAIN MDD2, 30 DAY(S), 60, REFILLS 1 NOTES: LUMBAR MRI. CLINICAL NOTES: WE DISCUSSED SEVERAL ISSUES WITH MR. KING'S PAIN MANAGEMENT CASE. AT THIS TIME I WOULD LIKE THE PATIENT TO CONTINUE USING GABAPENTIN FOR THE NEUROPATHIC PAIN. PATIENT WILL START USING CYMBALTA FOR THE MUSCOSKELETOR PAIN. PATIENT WAS ADVISED TO STOP THE MEDICATION IS HE HAS ANY ADVERSE SIDE EFFECTS FROM THE MEDICATION. WE DISCUSSED SEVERAL INJECTIONS THAT MAY AID THE PATIENT IN PAIN RELIEF, AT THIS TIME THE PATIENT DOES NOT WANT TO MOVE FORWARD WITH INJECTIONS BUT WILL CONSIDER THEM IN THE FUTURE. PATIENT IS A GOOD CANDIDATE FOR LUMBAR EPIDURAL'S DUE TO THE PAIN DOWN THE LEGS. PATIENT WILL FOLLOW UP IN TWO MONTHS. INSTRUCTIONS WERE GIVEN, QUESTIONS WERE ANSWERED, PATIENT REPORTS UNDERSTANDING AND AGREES WITH THE PLAN. I, BENY WHITMORE, DOCUMENTED THE ABOVE INFORMATION ACTING A SCRIBE FOR DR. BOYLE. I HAVE REVIEWED THE ABOVE DOCUMENT, WRITTEN BY BENY BALBUENA AND I VERIFY THAT IT IS ACCURATE. PROCEDURES PN WORKMANS' COMP OPINION IN YOUR OPINION, WAS THE INCIDENT THAT THE PATIENT DESCRIBED THE COMPETENT MEDICAL CAUSE OF THIS INJURY/ILLNESS? YES ARE THE PATIENT'S COMPLAINTS CONSISTENT WITH HIS/HER HISTORY OF THE INJURY/ILLNESS? YES IS THE PATIENT'S HISTORY OF THE INJURY/ILLNESS CONSISTENT WITH YOUR OBJECTIVE FINDING? YES WHAT IS THE PERCENTAGE OF TEMPORARY IMPAIRMENT? MODERATE TO MARKED = 66.7% IS THE PATIENT WORKING? NO DOCTOR ON SITE: YOU MENON MD PROCEDURE CODES FA211 ESTABILISHED PATIENT [facility] CHARGE G8427 DOC MEDS VERIFIED W/PT OR RE G8730 PAIN ASSESS POS TOOL F/U PLAN DOC DISPOSITION & COMMUNICATION FOLLOW UP 2 MONTHS ELECTRONICALLY SIGNED BY YOU BOYLE MD ON 08/09/2017 AT 09:37 AM EDT DISCLAIMER : THIS IS A VISIT SUMMARY EXTRACTED FROM THE [employer] CHART. IT IS NOT A COPY OF THE [employer] PROGRESS NOTE. [facility]
== END ==
LOC: M PAIN 09:00
PROVIDERS: ATTEND Anesthesiology
DX: G89.29 Other chronic pain (principal); M54.5 Low back pain; M51.16 Intervertebral disc disorders with radiculopathy, lumbar region; E11.9 Type 2 diabetes mellitus without complications; I25.2 Old myocardial infarction; E03.9 Hypothyroidism, unspecified; R26.9 Unspecified abnormalities of gait and mobility; I25.10 Atherosclerotic heart disease of native coronary artery without angina pectoris; I10 Essential (primary) hypertension; K21.9 Gastro-esophageal reflux disease without esophagitis; M11.20 Other chondrocalcinosis, unspecified site; Z79.891 Long term (current) use of opiate analgesic; Z79.899 Other long term (current) drug therapy; Z88.0 Allergy status to penicillin; Z88.6 Allergy status to analgesic agent; Z88.8 Allergy status to other drugs, medicaments and biological substances; Z79.02 Long term (current) use of antithrombotics/antiplatelets

== ENCOUNTER → 2017-11-15 | Outpatient (CLI) | payer OTHER | LOC: M PAIN 10:45 | DX: G89.29 Other chronic pain (principal); M54.5 Low back pain; I10 Essential (primary) hypertension; I25.10 Atherosclerotic heart disease of native coronary artery without angina pectoris; I25.2 Old myocardial infarction; M11.20 Other chondrocalcinosis, unspecified site; F17.200 Nicotine dependence, unspecified, uncomplicated; Z79.01 Long term (current) use of anticoagulants; Z79.82 Long term (current) use of aspirin; Z88.0 Allergy status to penicillin; Z88.6 Allergy status to analgesic agent; Z88.8 Allergy status to other drugs, medicaments and biological substances | CPT/HCPCS: G0463 ==

== ENCOUNTER → 2024-10-06 | Outpatient (CLI) | payer BC | LOC: M SLEEP 07:36 | PROVIDERS: ATTEND Family Medicine | DX: R55 Syncope and collapse (principal) ==